=== PATIENT | female | born 1955 | race Caucasian/White ===

== ENCOUNTER 2021-06-11 16:15 | Emergency (ER) | payer OTHER ==
[2021-06-11 20:10] LABS: Basophils % (A) 0 %; Eosinophils # (A) 0.1 k/uL (0-0.7); Eosinophils % (A) 1 %; HCT 40.4 % (34.0-46.0); HGB 14.2 gm/dL (11.4-16.0); Lymphocytes # (A) 0.9 k/uL (1.0-4.8); Lymphocytes % (A) 17 %; MCH 32.4 pg (25.0-35.0); MCHC 35.2 g/dL (31.0-37.0); Mean Platelet Volume 8.5; Monocytes # (A) 0.2 k/uL (0-1.0); Monocytes % (A) 4 %; Neutrophils # (A) 3.9 k/uL (1.3-7.7); Neutrophils % (A) 76 %; Platelet Count 254 k/uL (150-450); RBC 4.39 m/uL (3.80-5.40); RDW 12.8 % (11.5-15.5); WBC 5.2 k/uL (3.8-10.6)
[2021-06-11 20:13] LABS: ALT 34 U/L (4-34); AST 65 U/L (14-36); African American GFR (CKD) >90 (>60 ml/min/1.73 sqM); Albumin 3.4 g/dL (3.5-5.0); Alkaline Phosphatase 104 U/L (38-126); Anion Gap 9 mmol/L; Blood Urea Nitrogen 20 mg/dL (7-17); C Reactive Protein 6.1 mg/dL (<1.0); Calcium 9.1 mg/dL (8.4-10.2); Carbon Dioxide 24 mmol/L (22-30); Chloride 108 mmol/L (98-107); Glucose 96 mg/dL (74-99); Magnesium 1.9 mg/dL (1.6-2.3); Non-African American GFR(CKD) 84 (>60 ml/min/1.73 sqM); Potassium 4.3 mmol/L (3.5-5.1); Sodium 141 mmol/L (137-145); Total Bilirubin 1.1 mg/dL (0.2-1.3); Total Protein 6.4 g/dL (6.3-8.2)
[2021-06-11] MEDS ORDERED: SODIUM CHLORIDE 0.9% 1,000 ML IV ONE (20:27)
[2021-06-11] MEDS ORDERED: ONDANSETRON 4 MG/2 ML VIAL IVP STA (20:27)
[2021-06-11 20:28] LABS: INR 0.9 (<1.2); Prothrombin Time 9.8 sec (9.0-12.0)
[2021-06-11 20:41] LABS: Partial Thromboplastin Time 21.1 sec (22.0-30.0)
--- NOTE | 2021-06-11 20:59 | XR ---
EXAMINATION TYPE: XR chest 1V portable DATE OF EXAM: 06/11/2021 COMPARISON: NONE HISTORY: Weakness. Shortness of breath. TECHNIQUE: Single frontal view of the chest is obtained. FINDINGS: Cardiac mediastinal silhouette and pulmonary vasculature is within normal limits. There is bilateral patchy opacity. No effusion or pneumothorax. IMPRESSION: Multifocal airspace disease.
[2021-06-11] MEDS ORDERED: KETOROLAC 15 MG/ML 1 ML VIAL IVP STA (21:07)
--- NOTE | 2021-06-11 22:02 | ED ---
URI HPI - General Chief Complaint: Upper Respiratory Infection Stated Complaint: SOB,Weakness Source: patient Mode of arrival: ambulatory Limitations: no limitations - History of Present Illness Initial Comments: 65-year-old female with no past medical history presents emergency department reporting nausea, vomiting and shortness of breath. Patient states that she was around her daughter who tested positive for Covid. Patient began having symptoms on Monday. She went to [facility] and got tested on Monday and was positive. States that the course of the week she has been very fatigued, short of breath with nausea and inability to hold down any food or drink. She denies fevers. No chest pain. No previous history of pulmonary or cardiac disease. No other alleviating, precipitating or modifying factors - Related Data Home Medications Medication Instructions Recorded Confirmed No Known Home Medications 06/11/21 06/11/21 Allergies Allergy/AdvReac Type Severity Reaction Status Date / Time No Known Allergies Allergy Verified 06/11/21 22:03 Review of Systems ROS Statement: Those systems with pertinent positive or pertinent negative responses have been documented in the HPI. ROS Other: All systems not noted in ROS Statement are negative. Past Medical History Past Medical History: No Reported History History of Any Multi-Drug Resistant Organisms: None Reported Past Surgical History: Section, Joint Replacement Additional Past Surgical History / Comment(s): L hip replacement, dtached rtina Past Psychological History: No Psychological Hx Reported Smoking Status: Never smoker Past Alcohol Use History: None Reported Past Drug Use History: None Reported General Exam Limitations: no limitations Course Vital Signs 06/11/21 06/11/21 06/11/21 17:29 19:32 22:55 Temperature 98 F 98.1 F Pulse Rate 50 L 50 L Respiratory 18 20 20 Rate Blood Pressure 111/69 126/74 O2 Sat by Pulse 94 L 96 Oximetry Procedures - [place] Protocol (Time Out) Nurse: Henrietta Lawler Medical Decision Making - Medical Decision Making On arrival patient is placed into room 15. A thorough history and physical exam is performed. Placed on continuous pulse ox and cardiac monitoring. Patient is able to maintain her saturations above 90%. Laboratories is conducted. D-dimer elevated at 2.47. Because of elevated d-dimer I did recommend a CT of the chest. It fails to demonstrate a PE however does demonstrate multifocal pneumonia. I discussed diagnosis, differential and treatment options. Patient feels comfortable going home at this time. She will receive antibody infusion. She'll be discharged home and is instructed follow up with her primary care doctor 2-4 days. Return to the emergency department should she have any worsening symptoms. Patient agreed to this was discharged home in stable condition - Lab Data Result diagrams: 06/11/21 19:50 06/11/21 19:50 Lab Results 06/11/21 06/11/21 06/11/21 Range/Units 19:50 19:50 19:50 WBC 5.2 (3.8-10.6) k/uL RBC 4.39 (3.80-5.40) m/uL Hgb 14.2 (11.4-16.0) gm/dL Hct 40.4 (34.0-46.0) % MCV 92.0 (80.0-100.0) fL MCH 32.4 (25.0-35.0) pg MCHC 35.2 (31.0-37.0) g/dL RDW 12.8 (11.5-15.5) % Plt Count 254 (150-450) k/uL MPV 8.5 Neutrophils % 76 % Lymphocytes % 17 % Monocytes % 4 % Eosinophils % 1 % Basophils % 0 % Neutrophils # 3.9 (1.3-7.7) k/uL Lymphocytes # 0.9 L (1.0-4.8) k/uL Monocytes # 0.2 (0-1.0) k/uL Eosinophils # 0.1 (0-0.7) k/uL Basophils # 0.0 (0-0.2) k/uL PT 9.8 (9.0-12.0) sec INR 0.9 (<1.2) APTT 21.1 L (22.0-30.0) sec D-Dimer 2.47 H (<0.60) mg/L FEU Sodium 141 (137-145) mmol/L Potassium 4.3 (3.5-5.1) mmol/L Chloride 108 H (98-107) mmol/L Carbon Dioxide 24 (22-30) mmol/L Anion Gap 9 mmol/L BUN 20 H (7-17) mg/dL Creatinine 0.76 (0.52-1.04) mg/dL Est GFR (CKD-EPI)AfAm >90 (>60 ml/min/1.73 sqM) Est GFR (CKD-EPI)NonAf 84 (>60 ml/min/1.73 sqM) Glucose 96 (74-99) mg/dL Plasma Lactic Acid Juancho (0.7-2.0) mmol/L Calcium 9.1 (8.4-10.2) mg/dL Magnesium 1.9 (1.6-2.3) mg/dL Total Bilirubin 1.1 (0.2-1.3) mg/dL AST 65 H (14-36) U/L ALT 34 (4-34) U/L Alkaline Phosphatase 104 (38-126) U/L C-Reactive Protein 6.1 H (<1.0) mg/dL Total Protein 6.4 (6.3-8.2) g/dL Albumin 3.4 L (3.5-5.0) g/dL 06/11/21 Range/Units 19:50 WBC (3.8-10.6) k/uL RBC (3.80-5.40) m/uL Hgb (11.4-16.0) gm/dL Hct (34.0-46.0) % MCV (80.0-100.0) fL MCH (25.0-35.0) pg MCHC (31.0-37.0) g/dL RDW (11.5-15.5) % Plt Count (150-450) k/uL MPV Neutrophils % % Lymphocytes % % Monocytes % % Eosinophils % % Basophils % % Neutrophils # (1.3-7.7) k/uL Lymphocytes # (1.0-4.8) k/uL Monocytes # (0-1.0) k/uL Eosinophils # (0-0.7) k/uL Basophils # (0-0.2) k/uL PT (9.0-12.0) sec INR (<1.2) APTT (22.0-30.0) sec D-Dimer (<0.60) mg/L FEU Sodium (137-145) mmol/L Potassium (3.5-5.1) mmol/L Chloride (98-107) mmol/L Carbon Dioxide (22-30) mmol/L Anion Gap mmol/L BUN (7-17) mg/dL Creatinine (0.52-1.04) mg/dL Est GFR (CKD-EPI)AfAm (>60 ml/min/1.73 sqM) Est GFR (CKD-EPI)NonAf (>60 ml/min/1.73 sqM) Glucose (74-99) mg/dL Plasma Lactic Acid Juancho 1.2 (0.7-2.0) mmol/L Calcium (8.4-10.2) mg/dL Magnesium (1.6-2.3) mg/dL Total Bilirubin (0.2-1.3) mg/dL AST (14-36) U/L ALT (4-34) U/L Alkaline Phosphatase (38-126) U/L C-Reactive Protein (<1.0) mg/dL Total Protein (6.3-8.2) g/dL Albumin (3.5-5.0) g/dL - EKG Data EKG Comments: EKG demonstrates a marked sinus bradycardia with a ventricular rate of 43. Irritable 110. QRS 88. QTC of 412. No acute ST segment elevations or depressions. No signs of high degree heart block Disposition Clinical Impression: COVID-19, Nausea and vomiting Disposition: HOME SELF-CARE Condition: Stable Instructions (If sedation given, give patient instructions): Coronavirus Disease 2019 (COVID-19) Additional Instructions: You were given antibody infusion in the ED. Follow up with your PCP in 2-4 days. Return to the emergency room for any new or worsening symptoms Is patient prescribed a controlled substance at d/c from ED?: No Referrals: Jeannette Nunez MD [Primary Care Provider] - 1-2 days Time of Disposition: 22:26
--- NOTE | 2021-06-11 22:04 | CT ---
EXAMINATION TYPE: CT chest angio for PE DATE OF EXAM: 06/11/2021 COMPARISON: None HISTORY: SOB AND COVID CT DLP: 209.6 mGycm Automated exposure control for dose reduction was used. CONTRAST: CT Chest for pulmonary embolism performed with with IV Contrast, patient injected with 100 mL of Isov ue 370. FINDINGS: LUNGS: Bilateral, scattered, peripheral groundglass opacity. The tracheobronchial tree is patent. No effusion or pneumothorax.. MEDIASTINUM: There is satisfactory enhancement of the pulmonary artery and its branches, there is no CT evidence for pulmonary embolism. There are no greater than 1 cm hilar or mediastinal lymph nodes. No pericardial effusion is seen. OTHER: No additional significant abnormality is seen. IMPRESSION: 1. No pulmonary embolus. 2. Multifocal pneumonia.
[2021-06-11 22:58] VITALS: RESP 20; TEMP 98.1
[2021-06-11] MEDS ORDERED: SODIUM CHLORIDE 0.9% 50 ML IVPB ONE (23:15)
[2021-06-11] MEDS ORDERED: CASIRIVIMAB/IMDEVIMAB (EUA) 1,200 MG in SODIUM CHLORIDE 0.9% 100 ML IVPB ONE (23:15)
[2021-06-12] MEDS ORDERED: ONDANSETRON 4 MG ODT STARTER PACK 2 TAB BTL PO STA (01:17)
[2021-06-12 01:25] VITALS: BP 123/70; PULSE 45
== END 2021-06-12 01:25 | disposition home or self-care (01) ==
LOC: EC 16:15
DX: U07.1 COVID-19 (principal); R11.2 Nausea with vomiting, unspecified
CPT/HCPCS: 36415; 93005; 85379; 80053; 83605; 83735; 85025; 85610; 85730; 86140; 84145; 71045; 71275; 99285; 96365; 96375 ×2; 96361 ×2; J2405; J1885; S0119; Q9967; Q0243

== ENCOUNTER 2021-06-14 14:42 | Emergency (ER) | payer OTHER ==
[2021-06-14 15:06] VITALS: TEMP 98.5
[2021-06-14] MEDS ORDERED: SODIUM CHLORIDE 0.9% 1,000 ML IV STA (15:40)
[2021-06-14] MEDS ORDERED: DEXAMETHASONE SOD PHOSPHATE 10 MG/ML 1 ML VIAL IV STA (15:41)
--- NOTE | 2021-06-14 15:47 | ED ---
General Adult HPI - General Chief complaint: Weakness Stated complaint: Covid+/headache/nausea/vomiting Time Seen by Provider: 06/14/21 15:31 Source: patient, RN notes reviewed, old records reviewed Mode of arrival: wheelchair Limitations: no limitations - History of Present Illness Initial comments: 65-year-old female presenting for evaluation of fatigue, weakness, headache and nausea. Patient had been diagnosed with coronavirus approximately one week ago. She received monoclonal antibody infusion 3 days ago. Despite this treatment she has not improved. She denies chronic medical conditions. She had not been vaccinated. She denies measured fever. She does have exertional dyspnea and cough. She has nausea and dry heaving. She hasn't headache and poor appetite. - Related Data Previous Rx's Medication Instructions Recorded Dexamethasone [Decadron] 6 mg PO DAILY #10 tablet 06/14/21 Allergies Allergy/AdvReac Type Severity Reaction Status Date / Time No Known Allergies Allergy Verified 06/14/21 15:06 Review of Systems ROS Statement: Those systems with pertinent positive or pertinent negative responses have been documented in the HPI. ROS Other: All systems not noted in ROS Statement are negative. Past Medical History Past Medical History: No Reported History History of Any Multi-Drug Resistant Organisms: None Reported Past Surgical History: Section, Joint Replacement Additional Past Surgical History / Comment(s): L hip replacement, dtached rtina Past Psychological History: No Psychological Hx Reported Smoking Status: Never smoker Past Alcohol Use History: None Reported Past Drug Use History: None Reported General Exam Limitations: no limitations General appearance: alert, in no apparent distress Head exam: Present: atraumatic, normocephalic Eye exam: Present: normal appearance, PERRL ENT exam: Present: mucous membranes dry Neck exam: Present: normal inspection. Absent: tenderness, meningismus Respiratory exam: Present: rhonchi. Absent: respiratory distress, wheezes Cardiovascular Exam: Present: normal rhythm, bradycardia GI/Abdominal exam: Present: soft. Absent: distended, tenderness, guarding Extremities exam: Present: normal inspection, normal capillary refill. Absent: pedal edema, calf tenderness Neurological exam: Present: alert, oriented X3, CN II-XII intact. Absent: motor sensory deficit Psychiatric exam: Present: normal affect, normal mood Skin exam: Present: warm, dry, intact. Absent: cyanosis, diaphoretic Course Vital Signs 06/14/21 15:03 Temperature 98.5 F Pulse Rate 48 L Respiratory 16 Rate Blood Pressure 111/67 O2 Sat by Pulse 96 Oximetry EKG Findings - EKG Comments: EKG Findings:: Marked sinus bradycardia rate of 44 the corrected QT interval is 432 PA interval 124, QRS duration [address] segment elevation. Medical Decision Making - Medical Decision Making 65-year-old female presenting with coronavirus, Main complaint is fatigue and nausea. Patient has significant: Pneumonia on x-ray but is not hypoxic, no respiratory distress. She has a normal CBC, normal CMP. EKG shows a sinus bradycardia with stable blood pressure. She receives IV hydration as well as Decadron in the emergency department. Given the pneumonia I discussed case with Dr. Jeremias espinal for pulmonology who is agreeable with outpatient steroids. I did also give the patient the option of admission for hydration and symptom control versus discharge. She prefers discharge. She will be prescribed Decadron prescription, her will obtain pulse oximeter monitor oxygen level closely. Return parameters discussed. - Lab Data Result diagrams: 06/14/21 15:54 06/14/21 15:54 Lab Results 06/14/21 06/14/21 06/14/21 Range/Units 15:54 15:54 15:54 WBC 5.7 (3.8-10.6) k/uL RBC 4.40 (3.80-5.40) m/uL Hgb 13.7 (11.4-16.0) gm/dL Hct 40.5 (34.0-46.0) % MCV 92.1 (80.0-100.0) fL MCH 31.1 (25.0-35.0) pg MCHC 33.7 (31.0-37.0) g/dL RDW 12.3 (11.5-15.5) % Plt Count 329 (150-450) k/uL MPV 8.4 Neutrophils % 75 % Lymphocytes % 16 % Monocytes % 5 % Eosinophils % 2 % Basophils % 1 % Neutrophils # 4.3 (1.3-7.7) k/uL Lymphocytes # 0.9 L (1.0-4.8) k/uL Monocytes # 0.3 (0-1.0) k/uL Eosinophils # 0.1 (0-0.7) k/uL Basophils # 0.0 (0-0.2) k/uL PT 10.2 (9.0-12.0) sec INR 0.9 (<1.2) APTT 22.8 (22.0-30.0) sec Sodium 139 (137-145) mmol/L Potassium 3.5 (3.5-5.1) mmol/L Chloride 105 (98-107) mmol/L Carbon Dioxide 22 (22-30) mmol/L Anion Gap 12 mmol/L BUN 18 H (7-17) mg/dL Creatinine 0.71 (0.52-1.04) mg/dL Est GFR (CKD-EPI)AfAm >90 (>60 ml/min/1.73 sqM) Est GFR (CKD-EPI)NonAf >90 (>60 ml/min/1.73 sqM) Glucose 92 (74-99) mg/dL Plasma Lactic Acid Juancho (0.7-2.0) mmol/L Calcium 9.0 (8.4-10.2) mg/dL Magnesium 1.8 (1.6-2.3) mg/dL Total Bilirubin 1.0 (0.2-1.3) mg/dL AST 31 (14-36) U/L ALT 23 (4-34) U/L Alkaline Phosphatase 111 (38-126) U/L Troponin I (0.000-0.034) ng/mL Total Protein 6.3 (6.3-8.2) g/dL Albumin 3.2 L (3.5-5.0) g/dL 06/14/21 06/14/21 Range/Units 15:54 15:54 WBC (3.8-10.6) k/uL RBC (3.80-5.40) m/uL Hgb (11.4-16.0) gm/dL Hct (34.0-46.0) % MCV (80.0-100.0) fL MCH (25.0-35.0) pg MCHC (31.0-37.0) g/dL RDW (11.5-15.5) % Plt Count (150-450) k/uL MPV Neutrophils % % Lymphocytes % % Monocytes % % Eosinophils % % Basophils % % Neutrophils # (1.3-7.7) k/uL Lymphocytes # (1.0-4.8) k/uL Monocytes # (0-1.0) k/uL Eosinophils # (0-0.7) k/uL Basophils # (0-0.2) k/uL PT (9.0-12.0) sec INR (<1.2) APTT (22.0-30.0) sec Sodium (137-145) mmol/L Potassium (3.5-5.1) mmol/L Chloride (98-107) mmol/L Carbon Dioxide (22-30) mmol/L Anion Gap mmol/L BUN (7-17) mg/dL Creatinine (0.52-1.04) mg/dL Est GFR (CKD-EPI)AfAm (>60 ml/min/1.73 sqM) Est GFR (CKD-EPI)NonAf (>60 ml/min/1.73 sqM) Glucose (74-99) mg/dL Plasma Lactic Acid Juancho 1.1 (0.7-2.0) mmol/L Calcium (8.4-10.2) mg/dL Magnesium (1.6-2.3) mg/dL Total Bilirubin (0.2-1.3) mg/dL AST (14-36) U/L ALT (4-34) U/L Alkaline Phosphatase (38-126) U/L Troponin I 0.015 (0.000-0.034) ng/mL Total Protein (6.3-8.2) g/dL Albumin (3.5-5.0) g/dL Disposition Clinical Impression: COVID-19, Nausea and vomiting Disposition: HOME SELF-CARE Condition: Fair Instructions (If sedation given, give patient instructions): Coronavirus Disease 2019 (COVID-19) Additional Instructions: Please attempt to maintain hydration at home. Please take vitamins as discussed as well as prescription steroids. Please monitor your oxygen level closely and return with worsening or changing symptoms. Prescriptions: Dexamethasone [Decadron] 6 mg PO DAILY #10 tablet Is patient prescribed a controlled substance at d/c from ED?: No Referrals: Jeannette Nunez MD [Primary Care Provider] - 1-2 days Time of Disposition: 17:49
[2021-06-14 16:01] LABS: Basophils % (A) 1 %; Eosinophils # (A) 0.1 k/uL (0-0.7); Eosinophils % (A) 2 %; HCT 40.5 % (34.0-46.0); HGB 13.7 gm/dL (11.4-16.0); Lymphocytes # (A) 0.9 k/uL (1.0-4.8); Lymphocytes % (A) 16 %; MCH 31.1 pg (25.0-35.0); MCHC 33.7 g/dL (31.0-37.0); MCV 92.1 fL (80.0-100.0); Mean Platelet Volume 8.4; Monocytes # (A) 0.3 k/uL (0-1.0); Monocytes % (A) 5 %; Neutrophils # (A) 4.3 k/uL (1.3-7.7); Neutrophils % (A) 75 %; Platelet Count 329 k/uL (150-450); RDW 12.3 % (11.5-15.5); WBC 5.7 k/uL (3.8-10.6)
[2021-06-14 16:09] LABS: ALT 23 U/L (4-34); AST 31 U/L (14-36); African American GFR (CKD) >90 (>60 ml/min/1.73 sqM); Albumin 3.2 g/dL (3.5-5.0); Alkaline Phosphatase 111 U/L (38-126); Anion Gap 12 mmol/L; Blood Urea Nitrogen 18 mg/dL (7-17); Carbon Dioxide 22 mmol/L (22-30); Chloride 105 mmol/L (98-107); Glucose 92 mg/dL (74-99); Magnesium 1.8 mg/dL (1.6-2.3); Non-African American GFR(CKD) >90 (>60 ml/min/1.73 sqM); Potassium 3.5 mmol/L (3.5-5.1); Sodium 139 mmol/L (137-145); Total Protein 6.3 g/dL (6.3-8.2)
--- NOTE | 2021-06-14 16:13 | XR ---
EXAMINATION TYPE: XR chest 1V portable DATE OF EXAM: 06/14/2021 COMPARISON: Chest x-ray and CTA chest from 3 days ago HISTORY: Weakness and shortness of breath. COVID positive. TECHNIQUE: Single AP portable frontal upright view of the chest is obtained. FINDINGS: There is redemonstration of bilateral multifocal opacities greatest in the periphery of th e mid to lower lungs. The cardiac silhouette size is stable and within normal limits. Slight underly ing scoliosis redemonstrated. IMPRESSION: Bilateral multifocal opacities consistent with covid-19 infection redemonstrated. No sig nificant change from 3 days earlier..
[2021-06-14 16:19] LABS: INR 0.9 (<1.2); Partial Thromboplastin Time 22.8 sec (22.0-30.0); Prothrombin Time 10.2 sec (9.0-12.0)
[2021-06-14 18:05] VITALS: BP 147/88; PULSE 45; RESP 18
== END 2021-06-14 18:00 | disposition home or self-care (01) ==
LOC: EC 14:42
DX: R53.1 Weakness (principal); U07.1 COVID-19; R11.2 Nausea with vomiting, unspecified
CPT/HCPCS: 93005; 80053; 83605; 83735; 84484; 85025; 85610; 85730; 71045; 99285; 96374; 96361 ×2; J1100; 99284

== ENCOUNTER 2021-06-30 17:51 | Inpatient (IN) | payer OTHER ==
[2021-06-30] MEDS ORDERED: SODIUM CHLORIDE 0.9% 500 ML 500 ML IV STA (19:07)
[2021-06-30] MEDS ORDERED: IPRATROPIUM 0.5 MG/2.5 ML NEBU INHALATION STA (19:07)
--- NOTE | 2021-06-30 19:14 | ED ---
General Adult HPI - General Chief complaint: Shortness of Breath Stated complaint: Low Oxygen, [place] Time Seen by Provider: 06/30/21 18:50 Source: patient, RN notes reviewed, old records reviewed Mode of arrival: wheelchair Limitations: no limitations - History of Present Illness Initial comments: This is a 65-year-old female who presents to the emergency department complaining of difficulty breathing. Patient states she had cold about a month ago and on Monday she started having difficulty breathing and it has gotten progressively worse. Patient states her pulse ox is between 88 and 89 at home so she decided to come to the emergency department. Patient denies any chest pain or palpitations. Patient states she is coughing quite a bit but any coughing or exertion makes her extremely short of breath. Patient denies any leg swelling or calf tenderness. Patient denies any abdominal pain patient denies nausea vomiting diarrhea. Patient denies any fever or chills. - Related Data Previous Rx's Medication Instructions Recorded Albuterol Inhaler [Ventolin Hfa 2 puff INHALATION RT-QID PRN #1 gm 07/04/21 Inhaler] Apixaban [Eliquis] 2.5 mg PO BID #60 tab 07/04/21 Ascorbic Acid [Vitamin C] 1,000 mg PO DAILY #60 tab 07/04/21 Cefuroxime Axetil [Ceftin] 500 mg PO BID #10 tab 07/04/21 Cholecalciferol [Vitamin D3 (25 125 mcg PO DAILY #100 tablet 07/04/21 Mcg = 1000 Iu)] Zinc Sulfate [Orazinc] 220 mg PO DAILY #30 cap 07/04/21 predniSONE 10 mg PO DAILY #30 tab 07/04/21 Allergies Allergy/AdvReac Type Severity Reaction Status Date / Time No Known Allergies Allergy Verified 06/30/21 21:10 Review of Systems ROS Statement: Those systems with pertinent positive or pertinent negative responses have been documented in the HPI. ROS Other: All systems not noted in ROS Statement are negative. Past Medical History Past Medical History: No Reported History History of Any Multi-Drug Resistant Organisms: None Reported Past Surgical History: Section, Joint Replacement Additional Past Surgical History / Comment(s): L hip replacement, dtached rtina Past Psychological History: No Psychological Hx Reported Smoking Status: Never smoker Past Alcohol Use History: None Reported Past Drug Use History: None Reported General Exam - General Exam Comments Initial Comments: GENERAL: Patient is well-developed and well-nourished. Patient is nontoxic and well- hydrated and is in mild distress. ENT: Neck is soft and supple. No significant lymphadenopathy is noted. Oropharynx is clear. Moist mucous membranes. Neck has full range of motion without eliciting any pain. EYES: The sclera were anicteric and conjunctiva were pink and moist. Extraocular movements were intact and pupils were equal round and reactive to light. Eyelids were unremarkable. PULMONARY: Patient has decreased breath sounds with some expiratory wheezing CARDIOVASCULAR: There is a regular rate and rhythm without any murmurs gallops or rubs. ABDOMEN: Soft and nontender with normal bowel sounds. SKIN: Skin is clear with no lesions or rashes and otherwise unremarkable. NEUROLOGIC: Patient is alert and oriented x3. Cranial nerves II through XII are grossly intact. Motor and sensory are also intact. Normal speech, volume and content. Symmetrical smile. MUSCULOSKELETAL: Normal extremities with adequate strength and full range of motion. LYMPHATICS: No significant lymphadenopathy is noted PSYCHIATRIC: Normal psychiatric evaluation. Limitations: no limitations Course Vital Signs 06/30/21 06/30/21 06/30/21 18:50 19:44 20:14 Temperature 99.1 F Pulse Rate 72 64 69 Respiratory 20 18 Rate Blood Pressure 114/68 127/76 O2 Sat by Pulse 89 L 96 Oximetry 06/30/21 06/30/21 21:00 23:15 Temperature 98.9 F Pulse Rate 65 64 Respiratory 18 18 Rate Blood Pressure 118/79 122/81 O2 Sat by Pulse 96 96 Oximetry Medical Decision Making - Medical Decision Making EKG shows normal sinus rhythm at 75 bpm [place] interval 216 QRS is 88 QT interval is 532 QTC is 594. Patient's EKG shows no ST segment elevation or depression. Chest x-ray shows: Pneumonia bilaterally pretty much unchanged since the last chest x-ray. Dr. Rhodes will be taking over the care of this patient at 9 PM - Lab Data Result diagrams: 07/03/21 06:49 07/03/21 06:49 Lab Results 06/30/21 06/30/21 06/30/21 Range/Units 19:28 19:28 19:28 WBC 5.5 (3.8-10.6) k/uL RBC 3.99 (3.80-5.40) m/uL Hgb 13.2 (11.4-16.0) gm/dL Hct 38.2 (34.0-46.0) % MCV 95.9 (80.0-100.0) fL MCH 33.0 (25.0-35.0) pg MCHC 34.4 (31.0-37.0) g/dL RDW 14.5 (11.5-15.5) % Plt Count 203 (150-450) k/uL MPV 8.6 Neutrophils % (Manual) 51 % Band Neuts % (Manual) 17 % Lymphocytes % (Manual) 25 % Monocytes % (Manual) 7 % Neutrophils # (Manual) 3.70 (1.3-7.7) k/uL Lymphocytes # (Manual) 1.38 (1.0-4.8) k/uL Monocytes # (Manual) 0.39 (0-1.0) k/uL Nucleated RBCs 0 (0-0) /100 WBC Manual Slide Review Performed PT 10.7 (9.0-12.0) sec INR 1.0 (<1.2) APTT 27.4 (22.0-30.0) sec D-Dimer 2.57 H (<0.60) mg/L FEU Sodium 137 (137-145) mmol/L Potassium 3.7 (3.5-5.1) mmol/L Chloride 107 (98-107) mmol/L Carbon Dioxide 22 (22-30) mmol/L Anion Gap 8 mmol/L BUN 11 (7-17) mg/dL Creatinine 0.66 (0.52-1.04) mg/dL Est GFR (CKD-EPI)AfAm >90 (>60 ml/min/1.73 sqM) Est GFR (CKD-EPI)NonAf >90 (>60 ml/min/1.73 sqM) Glucose 90 (74-99) mg/dL Plasma Lactic Acid Juancho (0.7-2.0) mmol/L Calcium 8.9 (8.4-10.2) mg/dL Magnesium 2.1 (1.6-2.3) mg/dL Total Bilirubin 2.3 H (0.2-1.3) mg/dL AST 28 (14-36) U/L ALT 21 (4-34) U/L Alkaline Phosphatase 172 H (38-126) U/L Troponin I (0.000-0.034) ng/mL NT-Pro-B Natriuret Pep pg/mL Total Protein 6.6 (6.3-8.2) g/dL Albumin 3.1 L (3.5-5.0) g/dL Procalcitonin (0.02-0.09) ng/mL 06/30/21 06/30/21 06/30/21 Range/Units 19:28 19:28 19:28 WBC (3.8-10.6) k/uL RBC (3.80-5.40) m/uL Hgb (11.4-16.0) gm/dL Hct (34.0-46.0) % MCV (80.0-100.0) fL MCH (25.0-35.0) pg MCHC (31.0-37.0) g/dL RDW (11.5-15.5) % Plt Count (150-450) k/uL MPV Neutrophils % (Manual) % Band Neuts % (Manual) % Lymphocytes % (Manual) % Monocytes % (Manual) % Neutrophils # (Manual) (1.3-7.7) k/uL Lymphocytes # (Manual) (1.0-4.8) k/uL Monocytes # (Manual) (0-1.0) k/uL Nucleated RBCs (0-0) /100 WBC Manual Slide Review PT (9.0-12.0) sec INR (<1.2) APTT (22.0-30.0) sec D-Dimer (<0.60) mg/L FEU Sodium (137-145) mmol/L Potassium (3.5-5.1) mmol/L Chloride (98-107) mmol/L Carbon Dioxide (22-30) mmol/L Anion Gap mmol/L BUN (7-17) mg/dL Creatinine (0.52-1.04) mg/dL Est GFR (CKD-EPI)AfAm (>60 ml/min/1.73 sqM) Est GFR (CKD-EPI)NonAf (>60 ml/min/1.73 sqM) Glucose (74-99) mg/dL Plasma Lactic Acid Juancho 1.4 (0.7-2.0) mmol/L Calcium (8.4-10.2) mg/dL Magnesium (1.6-2.3) mg/dL Total Bilirubin (0.2-1.3) mg/dL AST (14-36) U/L ALT (4-34) U/L Alkaline Phosphatase (38-126) U/L Troponin I <0.012 (0.000-0.034) ng/mL NT-Pro-B Natriuret Pep 960 pg/mL Total Protein (6.3-8.2) g/dL Albumin (3.5-5.0) g/dL Procalcitonin (0.02-0.09) ng/mL 06/30/21 Range/Units 19:28 WBC (3.8-10.6) k/uL RBC (3.80-5.40) m/uL Hgb (11.4-16.0) gm/dL Hct (34.0-46.0) % MCV (80.0-100.0) fL MCH (25.0-35.0) pg MCHC (31.0-37.0) g/dL RDW (11.5-15.5) % Plt Count (150-450) k/uL MPV Neutrophils % (Manual) % Band Neuts % (Manual) % Lymphocytes % (Manual) % Monocytes % (Manual) % Neutrophils # (Manual) (1.3-7.7) k/uL Lymphocytes # (Manual) (1.0-4.8) k/uL Monocytes # (Manual) (0-1.0) k/uL Nucleated RBCs (0-0) /100 WBC Manual Slide Review PT (9.0-12.0) sec INR (<1.2) APTT (22.0-30.0) sec D-Dimer (<0.60) mg/L FEU Sodium (137-145) mmol/L Potassium (3.5-5.1) mmol/L Chloride (98-107) mmol/L Carbon Dioxide (22-30) mmol/L Anion Gap mmol/L BUN (7-17) mg/dL Creatinine (0.52-1.04) mg/dL Est GFR (CKD-EPI)AfAm (>60 ml/min/1.73 sqM) Est GFR (CKD-EPI)NonAf (>60 ml/min/1.73 sqM) Glucose (74-99) mg/dL Plasma Lactic Acid Juancho (0.7-2.0) mmol/L Calcium (8.4-10.2) mg/dL Magnesium (1.6-2.3) mg/dL Total Bilirubin (0.2-1.3) mg/dL AST (14-36) U/L ALT (4-34) U/L Alkaline Phosphatase (38-126) U/L Troponin I (0.000-0.034) ng/mL NT-Pro-B Natriuret Pep pg/mL Total Protein (6.3-8.2) g/dL Albumin (3.5-5.0) g/dL Procalcitonin 23.50 H (0.02-0.09) ng/mL Disposition
--- NOTE | 2021-06-30 19:36 | XR ---
EXAMINATION TYPE: XR chest 2V DATE OF EXAM: 06/30/2021 COMPARISON: 06/14/2021 HISTORY: Difficulty breathing TECHNIQUE: 2 views FINDINGS: There is extensive patchy infiltrates in both lung govea. Heart size is fairly normal. The re is no mediastinal adenopathy. There are no hilar masses. There is no significant pleural fluid. Dharmesh ny thorax is intact. IMPRESSION: Patchy bilateral pneumonia which appears the same or slightly worse than last exam. Elisha l heart.
[2021-06-30] MEDS ORDERED: DEXAMETHASONE SOD PHOSPHATE 10 MG/ML 1 ML VIAL IV STA (19:57)
[2021-06-30 20:01] LABS: ALT 21 U/L (4-34); AST 28 U/L (14-36); African American GFR (CKD) >90 (>60 ml/min/1.73 sqM); Albumin 3.1 g/dL (3.5-5.0); Alkaline Phosphatase 172 U/L (38-126); Anion Gap 8 mmol/L; Blood Urea Nitrogen 11 mg/dL (7-17); Calcium 8.9 mg/dL (8.4-10.2); Carbon Dioxide 22 mmol/L (22-30); Chloride 107 mmol/L (98-107); Glucose 90 mg/dL (74-99); Magnesium 2.1 mg/dL (1.6-2.3); Non-African American GFR(CKD) >90 (>60 ml/min/1.73 sqM); Potassium 3.7 mmol/L (3.5-5.1); Sodium 137 mmol/L (137-145); Total Bilirubin 2.3 mg/dL (0.2-1.3); Total Protein 6.6 g/dL (6.3-8.2)
[2021-06-30 20:07] LABS: Partial Thromboplastin Time 27.4 sec (22.0-30.0); Prothrombin Time 10.7 sec (9.0-12.0)
[2021-06-30 20:10] LABS: HCT 38.2 % (34.0-46.0); HGB 13.2 gm/dL (11.4-16.0); MCHC 34.4 g/dL (31.0-37.0); MCV 95.9 fL (80.0-100.0); Mean Platelet Volume 8.6; Platelet Count 203 k/uL (150-450); RBC 3.99 m/uL (3.80-5.40); RDW 14.5 % (11.5-15.5); WBC 5.5 k/uL (3.8-10.6)
[2021-06-30 20:59] LABS: Band Neutrophils % 17 %; Lymphocytes # (M) 1.38 k/uL (1.0-4.8); Monocytes # (M) 0.39 k/uL (0-1.0); Neutrophils % (M) 51 %; Nucleated Red Blood Cells 0 /100 WBC (0-0); Total Cells Counted 100
--- NOTE | 2021-06-30 21:49 | CT ---
EXAMINATION TYPE: CT chest angio for PE DATE OF EXAM: 06/30/2021 COMPARISON: 06/11/2021 HISTORY: pe CT DLP: 204.7 mGycm Automated exposure control for dose reduction was used. CONTRAST: Performed with IV Contrast, patient injected with 50 mL of Isovue 370. There are 3-D post processed images.Images obtained from the thoracic inlet to the diaphragm with IV contrast. There is patchy bilateral pulmonary interstitial and airspace infiltrates. Heart size is fairly bhvain l. There is no pericardial effusion. There is no pleural effusion. There are no hilar masses. There i s no mediastinal adenopathy. Thoracic aorta is intact. There is no aneurysm or dissection. The thorac ic spine is intact. There is mild spur formation. There is 10% anterior wedging of one mid thoracic v ertebra. Upper abdominal soft tissues appear intact. IMPRESSION: No evidence of pulmonary embolism. Extensive bilateral pneumonia which appears overall slightly worse than last exam.
[2021-06-30] MEDS ORDERED: PNEUMONIA PROTOCOL UTILIZED 1 EACH MISC PO PRN (22:10)
[2021-06-30] MEDS ORDERED: ALBUTEROL NEBULIZED 2.5 MG/3 ML INHALATION PRN (22:10)
[2021-06-30] MEDS ORDERED: AZITHROMYCIN 500 MG in SODIUM CHLORIDE 0.9% 250 ML IVPB SCH (23:00)
[2021-07-01] MEDS: PIPERACILLIN-TAZOBACTAM 3.375 GM in SODIUM CHLORIDE 0.9% 100 ML IVPB SCH ×2 (03:16→08:22)
[2021-07-01] MEDS: SODIUM CHLORIDE 0.9% 1,000 ML IV SCH ×2 (03:16→22:05)
[2021-07-01] MEDS ORDERED: IPRATROPIUM-ALBUTEROL 3 ML NEB INHALATION SCH (08:00)
--- NOTE | 2021-07-01 08:23 | XR ---
EXAMINATION TYPE: XR chest 2V DATE OF EXAM: 07/01/2021 COMPARISON: Chest x-ray 06/30/2021 HISTORY: Pneumonia TECHNIQUE: Frontal and lateral views of the chest are obtained. FINDINGS: Bilateral patchy increased density is present within the lungs as on prior exam. Cardiac m ediastinal silhouette is stable. No evident pneumothorax or pleural effusion. Right hemidiaphragm is mildly elevated. IMPRESSION: Findings consistent with pneumonia, correlate for Covid infection
--- NOTE | 2021-07-01 11:25 | P.HPIM ---
History of Present Illness H&P Date: 07/01/21 Chief Complaint: Short of breath cough This is a pleasant 65-year-old patient of follows with Dr. Nunez. Normally rather good health. For 5 days patient started having increasing chest congestion. Cough with green sputum. No obvious fever and chills. Decreased appetite. Also had a headache for about 3 days. Which is actually better this morning. No change in bowel movements. No obvious myalgia. Became hoarse. Last 2 days. Some wheezing. Tested negative for COVID. Patient otherwise normally in good health. Does not take any medications. Review of systems: GEN.: Tired decreased appetite EYES: None HEENT: Headache better NECK: None RESPIRATORY: As above CARDIOVASCULAR: None GASTROINTESTINAL: Occasional heartburn GENITOURINARY: None MUSCULOSKELETAL: None LYMPHATICS: None HEMATOLOGICAL: None PSYCHIATRY: None NEUROLOGICAL: None Past medical history to include: Joint replacement, detached retina Social history: . No history of smoking or alcohol Family history: Reviewed, noncontributory to presentation Physical examination: VITAL SIGNS: 97.7, 58, 16, 103/64, 95% on 4 L 89% on room air upon presentation GENERAL: BMI 25.7, sitting up in bed, tired awake. EYES: Pupils equal. Conjunctiva normal. HEENT: External appearance of nose and ears normal, oral cavity grossly normal. NECK: JVD not raised; masses not palpable. HEART: First and second heart sounds are normal; no edema. LUNGS: Respiratory rate increased, decreased breath sounds prolonged expiration cause crackles. ABDOMEN: Soft, nontender, liver spleen not palpable, no masses palpable. PSYCH: Alert and oriented x3; mood and affect normal MUSCULAR skeletal: Evidence of OA in multiple joints. NEUROLOGICAL: Cranial nerves grossly intact; no facial asymmetry, power and sensation grossly intact. LYMPHATICS: No lymph nodes palpable in the axilla and neck INVESTIGATIONS, reviewed in the clinical context: WBC 5.5 hemoglobin 13.2 platelets 203 sodium 137 potassium 3.7 creatinine 0.66 Troponin I less than 0.012 proBNP 960 Coronavirus [PCR]: Not detected EKG tracing personally reviewed by me-normal sinus rhythm nonspecific ST segment changes Chest x-ray film personally reviewed by me-diffuse bilateral scattered infiltrates Computed tomography scan of the chest with contrast: Negative for PE. Patchy bilateral anesthesia airspace infiltrates. Coronavirus [PCR]: Not detected Assessment and plan: -Patient presents with about 5 days of increasing respiratory symptoms. Green sputum. No fever or white count. Significant chest x-ray findings. This could be a viral pneumonitis. Bacterial infection cannot be ruled out. IV Zosyn, IV Zithromax. Check pro-calcitonin -Acute hypoxic respiratory failure from pneumonia Supplemental oxygen -Bronchospasm secondary to above Albuterol 2.5 nebulizer 4 times a day -GERD Pepcid 20 mg twice a day -Primary osteoarthritis multiple joints bilaterally Tylenol when necessary IV Zosyn, IV Zithromax. Check procalcitonin. Mucinex. Sputum for Gram stain and culture. Check for influenza A/B/RSV. Albuterol nebulizer. Pulmonary consult. Care was discussed with the patient. Questions answered. Past Medical History Past Medical History: No Reported History History of Any Multi-Drug Resistant Organisms: None Reported Past Surgical History: Section, Joint Replacement Additional Past Surgical History / Comment(s): L hip replacement, dtached rtina Past Anesthesia/Blood Transfusion Reactions: No Reported Reaction Past Psychological History: No Psychological Hx Reported Smoking Status: Never smoker Past Alcohol Use History: None Reported Past Drug Use History: None Reported Medications and Allergies Home Medications Medication Instructions Recorded Confirmed Type No Known Home Medications 06/30/21 06/30/21 History Allergies Allergy/AdvReac Type Severity Reaction Status Date / Time No Known Allergies Allergy Verified 06/30/21 21:10 Physical Exam Vitals: Vital Signs Temp Pulse Pulse Resp BP BP Pulse Ox 07/01/21 06:23 97.7 F 58 L 16 103/64 95 07/01/21 03:40 97.8 F 68 18 124/84 98 06/30/21 23:38 97.7 F 67 22 126/77 97 06/30/21 23:15 98.9 F 64 18 122/81 96 06/30/21 21:00 65 18 118/79 96 06/30/21 20:14 69 18 127/76 96 06/30/21 19:44 64 06/30/21 18:50 99.1 F 72 20 114/68 89 L Intake and Output 06/30/21 07/01/21 07/01/21 22:59 06:59 14:59 Intake Total 300 Balance 300 Intake: Oral 300 Other: # Voids 1 Weight 65.771 kg Results CBC & Chem 7: 06/30/21 19:28 10/13/21 19:28 Labs: Abnormal Lab Results - Last 24 Hours (Table) 06/30/21 06/30/21 Range/Units 19:28 19:28 D-Dimer 2.57 H (<0.60) mg/L FEU Total Bilirubin 2.3 H (0.2-1.3) mg/dL Alkaline Phosphatase 172 H (38-126) U/L Albumin 3.1 L (3.5-5.0) g/dL Thrombosis Risk Factor Assmnt - Choose All That Apply Any of the Below Risk Factors Present?: No Other Risk Factors: No Other congenital or acquired thrombophilia - If yes, enter type in comment: No Thrombosis Risk Factor Assessment Level: Very Low Risk
[2021-07-01] MEDS: ALBUTEROL NEBULIZED 2.5 MG/3 ML INHALATION SCH ×3 (12:29→20:33)
[2021-07-01] MEDS: guaiFENesin 600 MG TABLET.ER PO SCH ×3 (12:33→22:03)
--- NOTE | 2021-07-01 14:56 | P.CNPUL ---
History of Present Illness Consult date: 07/01/21 Requesting physician: Jeannette Nunez Reason for consult: dyspnea, cough, hypoxemia, pneumonia, abnormal CXR/CT Chief complaint: Shortness of breath. History of present illness: Pulmonary/critical care consultation dated 07/01/2021. 65-year-old female who comes to the emergency department on June 30, complaining of shortness of breath. The patient apparently tested positive for coronavirus back on June 04. At that time, she apparently received monoclonal antibody. She states that did not help. She apparently came back to the emergency room again, and received steroids, which she states helped. More recently, her days, her shortness of breath is worsened. In addition, she c omplains of a terrible cough. She is coughing up some phlegm. No fever or chills. No nausea, vomiting, or diarrhea. No abdominal pain. Her primary care physician is Dr. Jeannette Nunez. The patient denies any prior history of any major medical problems. She denies hypertension, diabetes, lung disease. The patient is not vaccinated. She tested positive on this admission for both coronavirus, and respiratory syncytial virus. Chest x-ray showed diffuse bilateral infiltrates. This was also seen on her computed tomography scan, which did not show a pulmonary embolism. Currently, she is on saline at 20 mL an hour, and 3 L nasal cannula. White count 5.5, he will 13.2, hematocrit 38.2, platelet count 203,000. PT INR and PTT were all normal. D-dimer 2.57. Her electrolyte profile was also normal. Her alkaline phosphatase is 172 N-terminal proBNP 960. Chest x-ray and CAT scan are both reviewed. Review of Systems REVIEW OF SYSTEMS: CONSTITUTIONAL: [Negative.] NEUROLOGIC: [ Negative.] HEENT: [ Negative.] CARDIAC: [Negative.] PULMONARY: Worsening shortness of breath and painful cough. GI: [Negative.] : [Negative.] RHEUMATOLOGIC: [ Negative.] IMMUNOLOGIC: [ Negative.] ENDOCRINE: [Negative. ] DERMATOLOGIC: [Negative.] Past Medical History Past Medical History: No Reported History History of Any Multi-Drug Resistant Organisms: None Reported Past Surgical History: Section, Joint Replacement Additional Past Surgical History / Comment(s): L hip replacement, dtached rtina Past Anesthesia/Blood Transfusion Reactions: No Reported Reaction Past Psychological History: No Psychological Hx Reported Smoking Status: Never smoker Past Alcohol Use History: None Reported Past Drug Use History: None Reported Medications and Allergies Home Medications Medication Instructions Recorded Confirmed Type No Known Home Medications 06/30/21 06/30/21 History Allergies Allergy/AdvReac Type Severity Reaction Status Date / Time No Known Allergies Allergy Verified 06/30/21 21:10 Physical Exam Osteopathic Statement: *. No significant issues noted on an osteopathic structural exam other than those noted in the History and Physical/Consult. Vitals: Vital Signs Temp Pulse Pulse Resp BP BP Pulse Ox 07/01/21 12:39 72 16 07/01/21 12:29 68 16 07/01/21 10:30 98.3 F 64 19 125/75 93 L 07/01/21 06:23 97.7 F 58 L 16 103/64 95 07/01/21 03:40 97.8 F 68 18 124/84 98 06/30/21 23:38 97.7 F 67 22 126/77 97 06/30/21 23:15 98.9 F 64 18 122/81 96 06/30/21 21:00 65 18 118/79 96 06/30/21 20:14 69 18 127/76 96 06/30/21 19:44 64 06/30/21 18:50 99.1 F 72 20 114/68 89 L Intake and Output 06/30/21 07/01/21 07/01/21 22:59 06:59 14:59 Intake Total 300 600 Balance 300 600 Intake: Oral 300 600 Other: # Voids 1 Weight 65.771 kg Mild conversational dyspnea, oriented 3. Currently on 3 L nasal cannula. Saturations are in the mid to high 90s. HEENT examination is grossly unremarkable. Neck supple. Full range of motion. No adenopathy thyromegaly or neck vein distention. Cardiovascular examination reveals regular rhythm rate. S1-S2 normal. No S3 or S4. No discernible murmur noted. Heart sounds are distant. Heart rate 75 bpm. Lungs reveal bilateral coarse rhonchi. No wheezes or crackles. Breath sounds equal bilaterally. The patient coughs with deep inspiration. Abdomen soft bowel sounds are heard. No masses or tenderness. Extremities are intact. No cyanosis clubbing or edema. Skin is without rash or lesion. Neurologic examination is brief but nonfocal. Results - Laboratory Findings CBC and BMP: 10/13/21 19:28 06/30/21 19:28 PT/INR, D-dimer PT 10.7 sec (9.0-12.0) 06/30/21 19:28 INR 1.0 (<1.2) 06/30/21 19:28 D-Dimer 2.57 mg/L FEU (<0.60) H 06/30/21 19:28 Abnormal lab findings: Abnormal Labs 06/30/21 06/30/21 07/01/21 19:28 19:28 12:34 D-Dimer 2.57 H Total Bilirubin 2.3 H Alkaline Phosphatase 172 H Albumin 3.1 L RSV (PCR) Detected A SARS-CoV-2 (PCR) Detected A - Diagnostic Findings Chest x-ray: image reviewed CT scan - chest: image reviewed Assessment and Plan Assessment: Acute hypoxemic respiratory failure secondary to coronavirus pneumonia. Patient also tested positive for respiratory syncytial virus. Previous administration of monoclonal antibody, on June 04. No significant past medical history. Plan: Plan dated 07/01/2021. The patient should get Decadron 6 mg daily. In addition, the patient should get vitamin C, vitamin D3, and zinc. She does not need any antibiotics. They will be discontinued. In addition, the patient should get Lovenox 40 mg subcu per d ay. She is not a candidate for REM. She is also not a candidate for Baricitinib. We will continue to follow make recommendations where appropriate. Prognosis is guarded. I did explain to the patient that her chest x-ray and CAT scan were reviewed. There was no evidence of blood clot. Time with Patient: Greater than 30
[2021-07-01] MEDS: ALBUTEROL HFA INHALER INHALATION PRN (20:34)
[2021-07-02] MEDS: ALBUTEROL HFA INHALER INHALATION PRN ×2 (08:13→11:49)
[2021-07-02] MEDS: ALBUTEROL NEBULIZED 2.5 MG/3 ML INHALATION SCH ×3 (08:14→15:36)
[2021-07-02 08:16] LABS: C Reactive Protein 22.9 mg/dL (<1.0)
[2021-07-02] MEDS: ASCORBIC ACID 500 MG TAB PO SCH (08:29)
[2021-07-02] MEDS: CHOLECALCIFEROL 25 MCG (1000 IU) TABLET PO SCH (08:29)
[2021-07-02] MEDS: guaiFENesin 600 MG TABLET.ER PO SCH ×3 (08:29→17:12)
[2021-07-02] MEDS: ZINC SULFATE 220 MG CAP PO SCH (08:29)
[2021-07-02] MEDS: ENOXAPARIN 40 MG/0.4 ML SYRINGE SQ SCH (08:29)
[2021-07-02] MEDS: dexAMETHasone 2 MG TAB PO SCH (08:29)
--- NOTE | 2021-07-02 11:09 | P.PN ---
Subjective Progress Note Date: 07/02/21 On today's evaluation are not 07/02/2021 patient is seen in follow-up on medical surgical floor, she is quite congested, wheezy, she is bringing up large amount of yellow-colored phlegm. Her pro-calcitonin level was significantly elevated at 23.5, suggesting presence of bacterial pneumonia, and patient will be started on Zosyn for empiric antibiotic coverage, blood cultures have been sent and pending, sputum sample was sent last night. Patient states her sputum color is a bit process chemist, although still significant in amount. She states a few days ago she was bringing up brownish colored phlegm. Breathing fairly comfortably, she is on 2 L of oxygen pulse ox is 95%, she is afebrile, d-dimer today is 1.69, improved, she remains on prophylactic dose Lovenox, LDH is not significantly elevated is actually within normal limit is 528, and CRP was elevated at 22.9 . She is sitting up in the chair, denies any chest pain, no hemoptysis, CTA chest showed no evidence of pulmonary embolism but presence of extensive bilateral pneumonia that was worsened from her most previous CT chest. Objective - Vital Signs Vital signs: Vital Signs Temp 98.3 F 07/02/21 09:57 Pulse 65 07/02/21 09:57 Resp 18 07/02/21 09:57 BP 122/76 07/02/21 09:57 Pulse Ox 95 07/02/21 09:57 Intake & Output 07/01/21 07/02/21 07/02/21 18:59 06:59 18:59 Intake Total 600 100 Balance 600 100 Intake: Oral 600 100 Other: Voiding Method Toilet Toilet # Voids 2 - Exam GENERAL EXAM: Alert, very pleasant, 65-year-old white female, on 2 L of oxygen with a pulse ox of 95%, sitting up in the recliner, has a loose congested cough, and patient is bringing up large amount of yellow-colored phlegm comfortable in no apparent distress. HEAD: Normocephalic/atraumatic. EYES: Normal reaction of pupils, equal size. Conjunctiva pink, sclera white. NOSE: Clear with pink turbinates. THROAT: No erythema or exudates. NECK: No masses, no JVD, no thyroid enlargement, no adenopathy. CHEST: No chest wall deformity. Symmetrical expansion. LUNGS: Equal air entry with diffuse rhonchi and wheezing CVS: Regular rate and rhythm, normal S1 and S2, no gallops, no murmurs, no rubs ABDOMEN: Soft, nontender. No hepatosplenomegaly, normal bowel sounds, no guarding or rigidity. EXTREMITIES: No clubbing, no edema, no cyanosis, 2+ pulses and upper and lower extremities. MUSCULOSKELETAL: Muscle strength and tone normal. SPINE: No scoliosis or deformity SKIN: No rashes CENTRAL NERVOUS SYSTEM: Alert and oriented -3. No focal deficits, tone is normal in all 4 extremities. PSYCHIATRIC: Alert and oriented -3. Appropriate affect. Intact judgment and insight. - Labs CBC & Chem 7: 06/30/21 19:28 06/30/21 19:28 Labs: Abnormal Lab Results - Last 24 Hours (Table) 06/30/21 07/01/21 07/02/21 Range/Units 19:28 12:34 05:38 D-Dimer (<0.60) mg/L FEU C-Reactive Protein 22.9 H (<1.0) mg/dL Procalcitonin 23.50 H (0.02-0.09) ng/mL RSV (PCR) Detected A (Not Detectd) SARS-CoV-2 (PCR) Detected A (Not Detectd) 07/02/21 Range/Units 05:58 D-Dimer 1.69 H (<0.60) mg/L FEU C-Reactive Protein (<1.0) mg/dL Procalcitonin (0.02-0.09) ng/mL RSV (PCR) (Not Detectd) SARS-CoV-2 (PCR) (Not Detectd) Microbiology - Last 24 Hours (Table) 06/30/21 23:05 Blood Culture - Preliminary Blood No Growth after 24 hours 06/30/21 22:50 Blood Culture - Preliminary Blood No Growth after 24 hours 07/01/21 10:21 Sputum Culture - Preliminary Sputum Assessment and Plan Plan: Assessment: #1. Acute hypoxic respiratory failure, multifactorial, related to recent history of COVID-19 infection status post monoclonal antibody infusion, RSV, and superinfection with a bacterial pathogen is suspected based on elevated pro- calcitonin #2. Suspect presence of a bacterial superinfection, bacterial pneumonia, patient will be covered with Zosyn empirically, pro calcitonin level came back elevated at 23.5, patient is producing copious amount of yellow-colored phlegm which will be sent for culture #3. Elevated d-dimer with no CTA evidence of pulmonary embolism, is currently improving, patient is currently on prophylactic dose Lovenox 40 mg daily Plan: Pro calcitonin level was noted We'll put the patient back on Zosyn Send a sputum culture, blood culture No urinary symptoms but will collect a urinalysis as well Continue Decadron, continue prophylactic Lovenox Follow-up chest x-ray, d-dimer and inflammatory markers tomorrow Continue following her clinical course I performed a history & physical examination of the patient and discussed their management with my nurse practitioner, Sabrina Henry. I reviewed the nurse practitioner's note and agree with the documented findings and plan of care. Lung sounds are positive for diffuse wheezes and rhonchi throughout the lung govea. The findings and the impression was discussed with the patient. I attest to the documentation by the nurse practitioner. Time with Patient: Less than 30
[2021-07-02] MEDS: PIPERACILLIN-TAZOBACTAM 3.375 GM in SODIUM CHLORIDE 0.9% 100 ML IVPB SCH (13:00)
--- NOTE | 2021-07-02 17:04 | P.PN ---
Progress Note - Text Progress Note Date: 07/02/21 Chief Complaint: Short of breath cough This is a pleasant 65-year-old patient of follows with Dr. Nunez. Normally rather good health. For 5 days patient started having increasing chest congestion. Cough with green sputum. No obvious fever and chills. Decreased appetite. Also had a headache for about 3 days. Which is actually better this morning. No change in bowel movements. No obvious myalgia. Became hoarse. Last 2 days. Some wheezing. Tested negative for COVID. Patient otherwise normally in good health. Does not take any medications. Patient's initial rapid COVID-19 testing was negative. Repeat testing came back positive both for RSV PCR and COVID-19. 07/02/2021: Reclining in bed. Congested cough. Heavy sputum production. Short of breath. Intake- 50% of her breakfast. Tired. On dexamethasone, IV Zosyn. Review of systems: Was done for constitutional, cardiovascular, GI, pulmonary. relevant finding as above Active Medications Albuterol Sulfate (Albuterol Hfa Inhaler) 2 puff INHALATION RT-QID PRN PRN Reason: Shortness Of Breath Or Wheezing Last Admin: 07/02/21 11:49 Dose: 2 puff Documented by: Ascorbic Acid (Ascorbic Acid 500 Mg Tab) 1,000 mg PO DAILY [facility] Last Admin: 07/02/21 08:29 Dose: 1,000 mg Documented by: Cholecalciferol (Cholecalciferol 25 Mcg (1000 Iu) Tablet) 125 mcg PO DAILY [facility] Last Admin: 07/02/21 08:29 Dose: 125 mcg Documented by: Dexamethasone (Dexamethasone 2 Mg Tab) 6 mg PO DAILY [facility] Last Admin: 07/02/21 08:29 Dose: 6 mg Documented by: Enoxaparin Sodium (Enoxaparin 40 Mg/0.4 Ml Syringe) 40 mg SQ DAILY [facility] Last Admin: 07/02/21 08:29 Dose: 40 mg Documented by: Guaifenesin (Guaifenesin 600 Mg Tablet.Er) 600 mg PO QID [facility] Last Admin: 07/02/21 13:00 Dose: 600 mg Documented by: Sodium Chloride (Saline 0.9%) 1,000 mls @ 20 mls/hr IV .Q24H [facility] Last Admin: 07/01/21 22:05 Dose: 20 mls/hr Documented by: Piperacillin Sod/Tazobactam (Sod 3.375 gm/ Sodium Chloride) 100 mls @ 25 mls/hr IVPB Q8H [facility] Last Admin: 07/02/21 13:00 Dose: 25 mls/hr Documented by: Miscellaneous Information (Pneumonia Protocol Utilized 1 Each [facility] [place], [place]) 1 each PO ONCE PRN PRN Reason: Per Protocol Zinc Sulfate (Zinc Sulfate 220 Mg Cap) 220 mg PO DAILY [facility] Last Admin: 07/02/21 08:29 Dose: 220 mg Documented by: Past medical history to include: Joint replacement, detached retina Social history: . No history of smoking or alcohol Family history: Reviewed, noncontributory to presentation Physical examination: VITAL SIGNS: 98.3, 65, 18, 1 22 x 76, 95% on 2 L GENERAL: Reclining in bed, tired, coughing. EYES: Pupils equal. Conjunctiva normal. HEENT: External appearance of nose and ears normal, oral cavity grossly normal. NECK: JVD not raised; masses not palpable. HEART: First and second heart sounds are normal; no edema. LUNGS: Respiratory rate increased, decreased breath sounds prolonged expiration, expiratory crackles. ABDOMEN: Soft, nontender, liver spleen not palpable, no masses palpable. PSYCH: Alert and oriented x3; mood and affect normal MUSCULAR skeletal: Evidence of OA in multiple joints. INVESTIGATIONS, reviewed in the clinical context: July 02: D-dimer 1.6 CRP 22.9 Influenza A and influenza B/PCR: Not detected RSV [PCR]: Detected COVID 19 PCR: Detected Pro-calcitonin 23.5 WBC 5.5 hemoglobin 13.2 platelets 203 sodium 137 potassium 3.7 creatinine 0.66 Troponin I less than 0.012 proBNP 960 Coronavirus [PCR]: Not detected EKG tracing personally reviewed by me-normal sinus rhythm nonspecific ST segment changes Chest x-ray film personally reviewed by me-diffuse bilateral scattered infiltrates Computed tomography scan of the chest with contrast: Negative for PE. Patchy bilateral anesthesia airspace infiltrates. Coronavirus [PCR]: Not detected Assessment and plan: -Acute bilateral secondary pneumonia on underlying COVID-19: Slow to respond IV Zosyn -COVID 19 infection with hypoxia Dexamethasone 6 mg daily. -Acute hypoxic respiratory failure from pneumonia Supplemental oxygen: 2 L -Bronchospasm secondary to above Albuterol inhaler 4 times a day -GERD Pepcid 20 mg twice a day -Primary osteoarthritis multiple joints bilaterally Tylenol when necessary Care was discussed with the patient. Questions answered. Continue with IV Zosyn, dexamethasone, supportive care. Add incentive spirometry. Follow with pulmonary and ID. Advised up in chair as tolerated.
[2021-07-02 22:21] LABS: Appearance,Urine Cloudy (Clear); Bilirubin,Urine Negative (Negative); Blood,Urine Negative (Negative); Calcium Oxalate Crystals,Urine Moderate /hpf; Color,Urine Yellow; Glucose,Urine (UA) Negative (Negative); Hyaline Casts,Urine 4 /lpf (0-2); Ketones,Urine Negative (Negative); Leukocyte Esterase,Urine Negative (Negative); Mucus,Urine Occasional /hpf; Nitrite,Urine Negative (Negative); Protein,Urine Trace (Negative); RBC,Urine 1 /hpf (0-5); Specific Gravity,Urine 1.028 (1.001-1.035); Squamous Epithelial Cell,Urine 2 /hpf (0-4); WBC,Urine 1 /hpf (0-5)
--- NOTE | 2021-07-02 23:50 | P.CONS ---
History of Present Illness - Reason for Consult Consult date: 07/02/21 pneumonia Requesting physician: Cuong Mcdermott - Chief Complaint weakness and shortness of breath x few days - History of Present Illness History of present illness : Patient is 65-year-old female who started getting sick around June 07, 2021 patient did have generalized weakness URI symptoms and a fever and was diagnosed with a COVID-19 on June 10, 2021 patient has received a monoclonal antibodies however did not have any improvement and subsequently was reevaluated in the ER and has been treated with the steroids and the patient mention she felt better afterwards and was doing okay until this Monday. Apparently the patient did made dinner for her children and have to do all the dishes afterwards, patient afterwards felt weak and has to sit down patient thought she overexerted herself over the next few days patient having increasing weakness lethargy shortness of breath on exertion she also having a cough which is moderate intensity has been bringing up some purulent sputum no hemoptysis no pleuritic chest pain with the symptom the aileen anglin was evaluated by the ER physician on arrival to the ER 2 days ago the patient did have low-grade fever of 99.1 F patient was hypoxic with O2 sats of 89% on room air currently 95% on 2 L nasal cannula patient did have a normal white count D-dimer was mildly elevated creatinine was normal liver enzymes are normal procalcitonin 23.50 urine has been negative martinez rapid testing was negative however PCR came back positive patient did have blood and sputum cultures obtained which are currently pending patient did have a chest x-ray patchy bilateral pneumonia slightly worse than last exam patient did have a CT angiogram of the chest that was negative for PE shows extensive bilateral pulmonary pneumonia patient is currently being treated with the [facility] infectious disease was consulted for further management Review of system: CONSTITUTIONAL: Positive for weakness along with the fever. EYES: No complaint. ENT: No complaint. RESPIRATORY: As per history of present illness. CARDIOVASCULAR: No complaint. GENITOURINARY: No complaint. GASTROINTESTINAL: As per history of present illness. MUSCULOSKELETAL: No complaint. INTEGUMENTARY: No complaint. PSYCHOLOGIC: No complaint. ENDOCRINE: No complaint. NEUROLOGIC: No complaint. Past medical history : Reviewed, documented below Past surgical history : Reviewed, documented below Social history: Reviewed, documented below Medications: Reviewed, as documented below EXAMINATION: Vital sigans= Reviewed and documented below GENERAL DESCRIPTION: Middle-aged female lying in bed, no distress. No tachypnea or accessory muscle of respiration use. HEENT: Shows Pallor , no scleral icterus. Oral mucous membrane is dry. NECK: Trachea central, no thyromegaly. LUNGS: Unlabored breathing. Coarse breath sounds bilaterally. No wheeze or c rackle. HEART: S1, S2, regular rate and rhythm. ABDOMEN: Soft, no tenderness , guarding or rigidity EXTREMITIES: No edema of feet. SKIN: No rash, no masses palpable. NEUROLOGICAL: The patient is awake, alert, oriented x3, mood and affect normal. LABS AND RADIOLOGY: Reviewed results see below Assessment : Patient presented to hospital with increasing shortness of breath and weakness in this patient also have a cough productive of purulent sputum patient did have significant elevated procalcitonin likely representing secondary bacterial pneumonia in this patient who started getting sick with a COVID-19 more than 3 weeks ago Plan: 1-patient to continue with the Zosyn 3.375 g every 8 hours while waiting for the sputum culture to finalize 2-gentle IV fluid We will follow on clinical condition and cultures to further adjust medication if needed Thank you for this consultation we will follow the patient along with you Past Medical History Past Medical History: No Reported History History of Any Multi-Drug Resistant Organisms: None Reported Past Surgical History: Section, Joint Replacement Additional Past Surgical History / Comment(s): L hip replacement, dtached rtina Past Anesthesia/Blood Transfusion Reactions: No Reported Reaction Past Psychological History: No Psychological Hx Reported Smoking Status: Never smoker Past Alcohol Use History: None Reported Past Drug Use History: None Reported Medications and Allergies Home Medications Medication Instructions Recorded Confirmed Type No Known Home Medications 06/30/21 06/30/21 History Allergies Allergy/AdvReac Type Severity Reaction Status Date / Time No Known Allergies Allergy Verified 06/30/21 21:10 Physical Exam Vitals: Vital Signs Temp Pulse Resp BP Pulse Ox 07/02/21 14:19 98 F 58 L 17 131/76 96 07/02/21 09:57 98.3 F 65 18 122/76 95 07/02/21 06:00 99.1 F 65 18 116/74 94 L 07/02/21 02:00 98.7 F 61 17 110/68 94 L 07/01/21 20:00 98.3 F 75 17 97/57 94 L 07/01/21 17:37 99.2 F 79 18 114/63 96 Intake and Output 07/02/21 07/02/21 07/02/21 06:59 14:59 22:59 Intake Total 100 Balance 100 Intake: Oral 100 Other: Voiding Method Toilet # Voids 2 Results CBC & Chem 7: 06/30/21 19:28 06/30/21 19:28 Labs: Abnormal Lab Results - Last 24 Hours (Table) 06/30/21 07/02/21 07/02/21 Range/Units 19:28 05:38 05:58 D-Dimer 1.69 H (<0.60) mg/L FEU C-Reactive Protein 22.9 H (<1.0) mg/dL Procalcitonin 23.50 H (0.02-0.09) ng/mL Microbiology - Last 24 Hours (Table) 06/30/21 23:05 Blood Culture - Preliminary Blood No Growth after 24 hours 06/30/21 22:50 Blood Culture - Preliminary Blood No Growth after 24 hours 07/01/21 10:21 Sputum Culture - Preliminary Sputum
[2021-07-02] MEDS ORDERED: PIPERACILLIN-TAZOBACTAM 3.375 GM VIAL ONE (23:59)
[2021-07-02] MEDS ORDERED: SODIUM CHLORIDE 0.9% 1,000 ML BAG ONE (23:59)
[2021-07-02] MEDS ORDERED: SODIUM CHLORIDE 0.9% 100 ML BAG ONE (23:59)
[2021-07-02] MEDS ORDERED: guaiFENesin 600 MG TABLET.ER PO ONE (23:59)
[2021-07-03] MEDS ORDERED: PIPERACILLIN-TAZOBACTAM 3.375 GM in SODIUM CHLORIDE 0.9% 100 ML IVPB SCH (06:00)
[2021-07-03] MEDS: guaiFENesin 600 MG TABLET.ER PO SCH ×4 (07:19→18:02)
[2021-07-03] MEDS: SODIUM CHLORIDE 0.9% 1,000 ML IV SCH (07:19)
[2021-07-03] MEDS: PIPERACILLIN-TAZOBACTAM 3.375 GM in SODIUM CHLORIDE 0.9% 100 ML IVPB SCH (07:20)
[2021-07-03 07:52] LABS: Basophils % (A) 0 %; Eosinophils % (A) 0 %; HCT 35.9 % (34.0-46.0); HGB 11.4 gm/dL (11.4-16.0); Lymphocytes # (A) 1.6 k/uL (1.0-4.8); Lymphocytes % (A) 20 %; MCH 31.7 pg (25.0-35.0); MCHC 31.8 g/dL (31.0-37.0); MCV 99.7 fL (80.0-100.0); Mean Platelet Volume 9.8; Monocytes # (A) 0.4 k/uL (0-1.0); Monocytes % (A) 5 %; Neutrophils % (A) 74 %; Platelet Count 170 k/uL (150-450); RDW 13.7 % (11.5-15.5); WBC 8.2 k/uL (3.8-10.6)
[2021-07-03] MEDS: ZINC SULFATE 220 MG CAP PO SCH (08:10)
[2021-07-03] MEDS: dexAMETHasone 2 MG TAB PO SCH (08:10)
[2021-07-03] MEDS: ASCORBIC ACID 500 MG TAB PO SCH (08:10)
[2021-07-03] MEDS: CHOLECALCIFEROL 25 MCG (1000 IU) TABLET PO SCH (08:10)
[2021-07-03] MEDS: ENOXAPARIN 40 MG/0.4 ML SYRINGE SQ SCH (08:11)
[2021-07-03] MEDS: ALBUTEROL HFA INHALER INHALATION PRN ×2 (08:56→18:12)
--- NOTE | 2021-07-03 14:28 | P.PN ---
Subjective Progress Note Date: 07/03/21 The patient is seen today 07/03/2021 in follow-up on the regular medical floor. She is currently sitting up in a chair at the bedside. Awake and alert in no acute distress. Breathing quite a bit better today compared to yesterday. She is maintaining O2 saturations in the low 90s on 2 L. She was evaluated for possible home oxygen. She did desaturate to 86% on room air with activity. Blood culture reveals no growth. Sputum culture revealed no growth. White count 8.2. Hemoglobin 11.4. D-dimer 1.56.She is continued on Decadron, Lovenox, vitamin supplements. Objective - Vital Signs Vital signs: Vital Signs Temp 98.1 F 07/03/21 09:28 Pulse 55 L 07/03/21 09:28 Resp 17 07/03/21 09:28 BP 144/81 07/03/21 09:28 Pulse Ox 90 L 07/03/21 11:15 Intake & Output 07/02/21 07/03/21 07/03/21 18:59 06:59 18:59 Other: Voiding Method Toilet Toilet # Voids 2 - Exam GENERAL EXAM: Alert, very pleasant, 65-year-old white female, on 2 L of oxygen with a pulse ox of 95%, sitting up in the recliner, no acute distress HEAD: Normocephalic/atraumatic. EYES: Normal reaction of pupils, equal size. Conjunctiva pink, sclera white. NOSE: Clear with pink turbinates. THROAT: No erythema or exudates. NECK: No masses, no JVD, no thyroid enlargement, no adenopathy. CHEST: No chest wall deformity. Symmetrical expansion. LUNGS: Equal air entry with bilateral scattered rhonchi CVS: Regular rate and rhythm, normal S1 and S2, no gallops, no murmurs, no rubs ABDOMEN: Soft, nontender. No hepatosplenomegaly, normal bowel sounds, no guarding or rigidity. EXTREMITIES: No clubbing, no edema, no cyanosis, 2+ pulses and upper and lower extremities. MUSCULOSKELETAL: Muscle strength and tone normal. SPINE: No scoliosis or deformity SKIN: No rashes CENTRAL NERVOUS SYSTEM: No focal deficits, tone is normal in all 4 extremities. PSYCHIATRIC: Alert and oriented -3. Appropriate affect. Intact judgment and insight. - Labs CBC & Chem 7: 07/03/21 06:49 06/30/21 19:28 Labs: Abnormal Lab Results - Last 24 Hours (Table) 07/02/21 07/03/21 07/03/21 Range/Units 16:00 06:49 06:49 RBC 3.60 L (3.80-5.40) m/uL D-Dimer 1.56 H (<0.60) mg/L FEU Urine Appearance Cloudy H (Clear) Urine Protein Trace H (Negative) Calcium Oxalate Crystal Moderate H (None) /hpf Hyaline Casts 4 H (0-2) /lpf Urine Mucus Occasional H (None) /hpf Microbiology - Last 24 Hours (Table) 07/01/21 10:21 Gram Stain - Final Sputum Sputum Culture - Final 06/30/21 23:05 Blood Culture - Preliminary Blood No Growth after 48 hours 06/30/21 22:50 Blood Culture - Preliminary Blood No Growth after 48 hours Assessment and Plan Assessment: 1 Acute hypoxic respiratory failure, multifactorial, related to recent history of COVID-19 infection status post monoclonal antibody infusion, RSV. Sputum cultures revealed no growth 2 Elevated d-dimer with no CTA evidence of pulmonary embolism, is currently improving, patient is currently on prophylactic dose Lovenox 40 mg daily Plan: The patient was seen and evaluated by Dr. Bailey Cleared for discharge from the pulmonary standpoint May require home oxygen I, the cosigning physician, performed a history & physical examination of the patient. Lungs sounds bilateral scattered rhonchi. Maintaining good O2 saturations in the 90s on 2 L/m per nasal cannular. I discussed the assessment and plan of care with my nurse practitioner, Coretta Yeager. I attest to the above note as dictated by her.
--- NOTE | 2021-07-03 15:35 | P.PN ---
Progress Note - Text Progress Note Date: 07/03/21 Chief Complaint: Short of breath cough This is a pleasant 65-year-old patient of follows with Dr. Nunez. Normally rather good health. For 5 days patient started having increasing chest congestion. Cough with green sputum. No obvious fever and chills. Decreased appetite. Also had a headache for about 3 days. Which is actually better this morning. No change in bowel movements. No obvious myalgia. Became hoarse. Last 2 days. Some wheezing. Tested negative for COVID. Patient otherwise normally in good health. Does not take any medications. Patient's initial rapid COVID-19 testing was negative. Repeat testing came back positive both for RSV PCR and COVID-19. 07/02/2021: Reclining in bed. Congested cough. Heavy sputum production. Short of breath. Intake- 50% of her breakfast. Tired. On dexamethasone, IV Zosyn. 07/03/2021: Sitting up in bed. Congestion a bit better. 2 L of nasal cannula. Eating about 50%. Review of systems: Was done for constitutional, cardiovascular, GI, pulmonary. relevant finding as above Active Medications Albuterol Sulfate (Albuterol Hfa Inhaler) 2 puff INHALATION RT-QID PRN PRN Reason: Shortness Of Breath Or Wheezing Last Admin: 07/03/21 08:56 Dose: 2 puff Documented by: Ascorbic Acid (Ascorbic Acid 500 Mg Tab) 1,000 mg PO DAILY [facility] Last Admin: 07/03/21 08:10 Dose: 1,000 mg Documented by: Cholecalciferol (Cholecalciferol 25 Mcg (1000 Iu) Tablet) 125 mcg PO DAILY [facility] Last Admin: 07/03/21 08:10 Dose: 125 mcg Documented by: Dexamethasone (Dexamethasone 2 Mg Tab) 6 mg PO DAILY [facility] Last Admin: 07/03/21 08:10 Dose: 6 mg Documented by: Enoxaparin Sodium (Enoxaparin 40 Mg/0.4 Ml Syringe) 40 mg SQ DAILY [facility] Last Admin: 07/03/21 08:11 Dose: 40 mg Documented by: Guaifenesin (Guaifenesin 600 Mg Tablet.Er) 600 mg PO QID [facility] Last Admin: 07/03/21 12:06 Dose: 600 mg Documented by: Sodium Chloride (Saline 0.9%) 1,000 mls @ 20 mls/hr IV .Q24H [facility] Last Admin: 07/03/21 07:19 Dose: Not Given Documented by: Miscellaneous Information (Pneumonia Protocol Utilized 1 Each [facility]) 1 each PO ONCE PRN PRN Reason: Per Protocol Zinc Sulfate (Zinc Sulfate 220 Mg Cap) 220 mg PO DAILY [facility] Last Admin: 07/03/21 08:10 Dose: 220 mg Documented by: Past medical history to include: Joint replacement, detached retina Social history: . No history of smoking or alcohol Family history: Reviewed, noncontributory to presentation Physical examination: VITAL SIGNS: 98.1, 55, 17, 144, 93% on 2 L GENERAL: Reclining in bed, not in distress NECK: JVD not raised; masses not palpable. HEART: First and second heart sounds are normal; no edema. LUNGS: Respiratory rate increased, . PSYCH: Alert and oriented x3; mood and affect normal MUSCULAR skeletal: Evidence of OA in multiple joints. INVESTIGATIONS, reviewed in the clinical context: July 03: WBC 8.2 hemoglobin 11.4 d-dimer 1.56 procalcitonin 4.56 July 02: D-dimer 1.6 CRP 22.9 Influenza A and influenza B/PCR: Not detected RSV [PCR]: Detected COVID 19 PCR: Detected Pro-calcitonin 23.5 WBC 5.5 hemoglobin 13.2 platelets 203 sodium 137 potassium 3.7 creatinine 0.66 Troponin I less than 0.012 proBNP 960 Coronavirus [PCR]: Not detected EKG tracing personally reviewed by me-normal sinus rhythm nonspecific ST segment changes Chest x-ray film personally reviewed by me-diffuse bilateral scattered infiltrates Computed tomography scan of the chest with contrast: Negative for PE. Patchy bilateral anesthesia airspace infiltrates. Coronavirus [PCR]: Not detected Assessment and plan: -Acute bilateral secondary pneumonia on underlying COVID-19: IV Zosyn -COVID 19 infection with hypoxia Dexamethasone 6 mg daily. -Acute hypoxic respiratory failure from pneumonia Supplemental oxygen: 2 L -Bronchospasm secondary to above Albuterol inhaler 4 times a day -GERD Pepcid 20 mg twice a day -Primary osteoarthritis multiple joints bilaterally Tylenol when necessary Continue with IV Zosyn, dexamethasone, supportive care. Increase activity as tolerated..
--- NOTE | 2021-07-03 18:03 | PN ---
PROGRESS NOTE DATE OF SERVICE: 07/03/2021 REASON FOR FOLLOWUP: Pneumonia. INTERVAL COURSE: History the patient is afebrile. The patient is feeling better today. She is breathing comfortably. The patient's cough has decreased in intensity, still bringing up some sputum. No vomiting. No abdominal pain or diarrhea. PHYSICAL EXAMINATION: Blood pressure 124/75 with a pulse of 56. Temperature 98.3. She is 94% on 2 L nasal cannula. General description is a middle-aged female up in the chair in no distress. Respiratory system: Unlabored breathing, decreased intensity of breath sounds. No wheeze. Heart S1, S2. Regular rate and rhythm. Abdomen soft, no tenderness. LABS: Hemoglobin 11.4, hematocrit 8.2, procalcitonin down to 4.56. DIAGNOSTIC IMPRESSION AND PLAN: Patient with acute respiratory failure which is multifactorial in this patient who did have a component of bacterial pneumonia. Patient sputum has been negative for resistant pathogen. Antibiotic adjusted to Rocephin, finish therapy with oral Ceftin and close outpatient followup. MMODL / IJN: [id number] /
[2021-07-03 19:19] LABS: ALT 14 U/L (4-34); AST 18 U/L (14-36); African American GFR (CKD) >90 (>60 ml/min/1.73 sqM); Albumin 2.8 g/dL (3.5-5.0); Albumin/Globulin Ratio 0.9; Alkaline Phosphatase 130 U/L (38-126); Blood Urea Nitrogen 13 mg/dL (7-17); Calcium 8.8 mg/dL (8.4-10.2); Carbon Dioxide 24 mmol/L (22-30); Chloride 107 mmol/L (98-107); Globulin 3.1 g/dL; Glucose 108 mg/dL (74-99); LDH 575 U/L (313-618); Non-African American GFR(CKD) >90 (>60 ml/min/1.73 sqM); Potassium 4.1 mmol/L (3.5-5.1); Total Bilirubin 0.5 mg/dL (0.2-1.3); Total Protein 5.9 g/dL (6.3-8.2)
[2021-07-03 19:42] LABS: C Reactive Protein 12.6 mg/dL (<1.0)
[2021-07-03 19:53] LABS: Anion Gap 8 mmol/L; Sodium 139 mmol/L (137-145)
[2021-07-03] MEDS ORDERED: guaiFENesin 600 MG TABLET.ER PO ONE (22:00)
[2021-07-04] MEDS: SODIUM CHLORIDE 0.9% 1,000 ML IV SCH (05:28)
[2021-07-04] MEDS: guaiFENesin 600 MG TABLET.ER PO SCH ×3 (05:28→13:14)
[2021-07-04] MEDS: dexAMETHasone 2 MG TAB PO SCH (09:20)
[2021-07-04] MEDS: ZINC SULFATE 220 MG CAP PO SCH (09:20)
[2021-07-04] MEDS: CHOLECALCIFEROL 25 MCG (1000 IU) TABLET PO SCH (09:20)
[2021-07-04] MEDS: ENOXAPARIN 40 MG/0.4 ML SYRINGE SQ SCH (09:20)
[2021-07-04] MEDS: ASCORBIC ACID 500 MG TAB PO SCH (09:20)
[2021-07-04 10:19] VITALS: RESP 17
--- NOTE | 2021-07-04 13:12 | XR ---
EXAMINATION TYPE: XR chest 1V portable DATE OF EXAM: 07/04/2021 COMPARISON: 07/01/2020 HISTORY: Cough TECHNIQUE: Single frontal view of the chest is obtained. FINDINGS: Bilateral areas of infiltrate are seen compatible with multifocal pneumonia. Follow-up to resolution to exclude neoplasm. Heart size normal. No pleural effusion or pneumothorax. Interstitial pattern suggest chronic interstitial lung disease. Suspect underlying COPD. IMPRESSION: Stable multifocal infiltrates.
--- NOTE | 2021-07-04 14:34 | P.DS ---
Providers Date of admission: 06/30/21 22:10 Expected date of discharge: 07/04/21 Attending physician: Cuong Mcdermott Consults: 07/01/21 10:19 Consult Physician Routine Consulting Provider: Timothy Bailey Consult Reason/Comments: pneumonia Do you want consulting provider notified?: Yes 07/02/21 16:07 Consult Physician Routine Consulting Provider: Kelly Han Consult Reason/Comments: COVID 19 positive Do you want consulting provider notified?: Yes Primary care physician: Jeannette Nunez [facility] Course: Chief Complaint: Short of breath cough This is a pleasant 65-year-old patient of follows with Dr. Nunez. Normally rather good health. For 5 days patient started having increasing chest congestion. Cough with green sputum. No obvious fever and chills. Decreased appetite. Also had a headache for about 3 days. Which is actually better this morning. No change in bowel movements. No obvious myalgia. Became hoarse. Last 2 days. Some wheezing. Tested negative for COVID. Patient otherwise normally in good health. Does not take any medications. Patient's initial rapid COVID-19 testing was negative. Repeat testing came back positive both for RSV PCR and COVID-19. On IV dexamethasone. For secondary bacterial infection place on IV Zosyn. Patient did improve. July 04: Pulse ox good on room air and at rest but dropped to 86% of that 80. Home with 2 L of oxygen. Communicated with Dr. Mayen from ID. Christopher for DC on Ceftin. We have by pulmonary. Questions were answered to the patient. Including isolation and not to return to work until cleared by pulmonary as an outpatient. Eliquis 2.5 by mouth twice a day added for DVT prophylaxis. Discussion and discharge planning more than 35 minutes Consultation: Dr. Han from ID Dr. Bailey from pulmonary Past medical history to include: Joint replacement, detached retina Social history: . No history of smoking or alcohol Family history: Reviewed, noncontributory to presentation Physical examination: VITAL SIGNS: 98.2, 45, 17, 120/75, 86% with activity GENERAL: Sitting up, comfortable PSYCH: Alert and oriented x3; mood and affect normal Francisco of the exam per pulmonary and nursing INVESTIGATIONS, reviewed in the clinical context: July 04: D-dimer 1.56 CRP 4.56 Influenza A and influenza B/PCR: Not detected RSV [PCR]: Detected COVID 19 PCR: Detected Pro-calcitonin 23.5 WBC 5.5 hemoglobin 13.2 platelets 203 sodium 137 potassium 3.7 creatinine 0.66 Troponin I less than 0.012 proBNP 960 Coronavirus [PCR]: Not detected EKG tracing personally reviewed by me-normal sinus rhythm nonspecific ST segment changes Chest x-ray film personally reviewed by me-diffuse bilateral scattered infiltrates Computed tomography scan of the chest with contrast: Negative for PE. Patchy bilateral anesthesia airspace infiltrates. Coronavirus [PCR]: Not detected Assessment and plan: -Acute bilateral secondary pneumonia on underlying COVID-19: IV Zosyn. Ceftin 500 mg twice a day for 5 days -COVID 19 infection with hypoxia Dexamethasone 6 mg daily. Home with steroid taper -Acute hypoxic respiratory failure from pneumonia Supplemental oxygen: 2 L -Bronchospasm secondary to above Albuterol inhaler 4 times a day -GERD Pepcid 20 mg twice a day -Primary osteoarthritis multiple joints bilaterally Tylenol when necessary Disposition: Home Plan - Discharge Summary Discharge Rx Participant: No New Discharge Prescriptions: New Cefuroxime Axetil [Ceftin] 500 mg PO BID #10 tab predniSONE 10 mg PO DAILY #30 tab Albuterol Inhaler [Ventolin Hfa Inhaler] 2 puff INHALATION RT-QID PRN #1 gm PRN Reason: Shortness Of Breath Or Wheezing Zinc Sulfate [Orazinc] 220 mg PO DAILY #30 cap Ascorbic Acid [Vitamin C] 1,000 mg PO DAILY #60 tab Cholecalciferol [Vitamin D3 (25 Mcg = 1000 Iu)] 125 mcg PO DAILY #100 tablet Apixaban [Eliquis] 2.5 mg PO BID #60 tab Discharge Medication List Albuterol Inhaler [Ventolin Hfa Inhaler] 2 puff INHALATION RT-QID PRN #1 gm 07/04/21 [Rx] Apixaban [Eliquis] 2.5 mg PO BID #60 tab 07/04/21 [Rx] Ascorbic Acid [Vitamin C] 1,000 mg PO DAILY #60 tab 07/04/21 [Rx] Cefuroxime Axetil [Ceftin] 500 mg PO BID #10 tab 07/04/21 [Rx] Cholecalciferol [Vitamin D3 (25 Mcg = 1000 Iu)] 125 mcg PO DAILY #100 tablet 07/04/21 [Rx] Zinc Sulfate [Orazinc] 220 mg PO DAILY #30 cap 07/04/21 [Rx] predniSONE 10 mg PO DAILY #30 tab 07/04/21 [Rx] Follow up Appointment(s)/Referral(s): Timothy Baiely DO [Doctor of Osteopathic Medicine] - 1 Week (office closed at time of discharge. Please call Monday to schedule appointment) Jeannette Nunez MD [Primary Care Provider] - 1-2 days (office closed at time of discharge. Please call Monday to schedule appointment ) Activity/Diet/Wound Care/Special Instructions: covid isolation
--- NOTE | 2021-07-04 15:04 | P.PN ---
Subjective Progress Note Date: 07/04/21 Principal diagnosis: Coronavirus associated pneumonia. The patient is seen today 07/03/2021 in follow-up on the regular medical floor. She is currently sitting up in a chair at the bedside. Awake and alert in no acute distress. Breathing quite a bit better today compared to yesterday. She is maintaining O2 saturations in the low 90s on 2 L. She was evaluated for possible home oxygen. She did desaturate to 86% on room air with activity. Blood culture reveals no growth. Sputum culture revealed no growth. White count 8.2. Hemoglobin 11.4. D-dimer 1.56.She is continued on Decadron, Lovenox, vitamin supplements. Progress note dated 07/04/2021. Currently, the patient's doing much better. The patient feels much less short of breath. She likely will need to be discharged home though on oxygen therapy. Today, her saturations are in the mid 80s on room air just sitting. They probably will drop even lower on exertion. Labs from yesterday are reviewed. They're mostly normal including a white count, hemoglobin, hematocrit, platelet count, electrolyte profile, etc. She remains on vitamin supplements, Lovenox, and Decadron. Objective - Vital Signs Vital signs: Vital Signs Temp 97.9 F 07/04/21 13:24 Pulse 53 L 07/04/21 13:24 Resp 17 07/04/21 13:24 BP 149/82 07/04/21 13:24 Pulse Ox 97 07/04/21 13:24 Intake & Output 07/03/21 07/04/21 07/04/21 18:59 06:59 18:59 Intake Total 600 Balance 600 Intake: Oral 600 Other: Voiding Method Toilet Toilet # Voids 2 - Exam No acute distress, oriented 3. Room air saturations are in the mid 80s. This is while sitting. HEENT examination is grossly unremarkable. Neck supple. Full range of motion. No adenopathy thyromegaly or neck vein distention. Cardiovascular examination reveals regular rhythm rate. S1-S2 normal. No S3 or S4. No discernible murmur noted. Heart rate is 63 bpm. Lungs reveal scattered bilateral rhonchi. No wheezes or crackles. Breath sounds are equal bilaterally. Abdomen soft bowel sounds are heard. No masses or tenderness. Extremities are intact. No cyanosis clubbing or edema. Skin is without rash or lesion. Neurologic examination is brief but nonfocal. - Labs CBC & Chem 7: 07/03/21 06:49 07/03/21 06:49 Labs: Abnormal Lab Results - Last 24 Hours (Table) 07/02/21 07/03/21 Range/Units 05:38 06:49 Glucose 108 H (74-99) mg/dL Alkaline Phosphatase 130 H (38-126) U/L C-Reactive Protein 12.6 H (<1.0) mg/dL Total Protein 5.9 L (6.3-8.2) g/dL Albumin 2.8 L (3.5-5.0) g/dL Procalcitonin 10.30 H (0.02-0.09) ng/mL Microbiology - Last 24 Hours (Table) 06/30/21 23:05 Blood Culture - Preliminary Blood No Growth after 72 hours 06/30/21 22:50 Blood Culture - Preliminary Blood No Growth after 72 hours Assessment and Plan Assessment: Acute hypoxemic respiratory failure secondary to coronavirus pneumonia. Patient also tested positive for respiratory syncytial virus. Previous administration of monoclonal antibody, on June 04. No significant past medical history. Plan: Plan dated 07/01/2021. The patient should get Decadron 6 mg daily. In addition, the patient should get vitamin C, vitamin D3, and zinc. She does not need any antibiotics. They will be discontinued. In addition, the patient should get Lovenox 40 mg subcu per day. She is not a candidate for REM. She is also not a candidate for Baricitinib. We will continue to follow make recommendations where appropriate. Prognosis is guarded. I did explain to the patient that her chest x-ray and CAT scan were reviewed. There was no evidence of blood clot. Plan dated 07/04/2021. From the pulmonary perspective, the patient could be considered for discharge. This will depend course on the primary hospitalist service. There may be other reasons that she might need to stay. Currently, she is on vitamin C, vitamin D3, and zinc. She was thought not to be candidate for REM. She was also not a candidate for the monoclonal antibody consulted to look at 6. She did receive both Decadron and Lovenox. The CAT scan was negative for pulmonary embolism. Additional recommendations and suggestions are forthcoming. We will continue to follow up should the patient not be discharged. Time with Patient: Less than 30
--- NOTE | 2021-07-04 17:36 | PN ---
PROGRESS NOTE DATE OF SERVICE: 07/04/2021 REASON FOR FOLLOWUP: Pneumonia. INTERVAL HISTORY: The patient is afebrile. The patient is breathing comfortably. Denies having any chest pain. Cough has decreased in intensity. No vomiting. No abdominal pain or diarrhea. PHYSICAL EXAMINATION: Blood pressure is 149/82 with a pulse of 53, temperature 97.9. She is 97% on 1 L nasal cannula. General description is a middle-aged female up in the bed in no distress. RESPIRATORY SYSTEM: Unlabored breathing. Coarse crackles at the bases. No wheeze. HEART: S1, S2. Regular rate and rhythm. ABDOMEN: Soft. No tenderness. LABS: Hemoglobin is 11.8, white count 8.2, creatinine 0.71. DIAGNOSTIC IMPRESSION AND PLAN: Patient with pneumonia, community-acquired. Overall improvement on Rocephin. Patient to finish therapy with oral Ceftin. Discussed with the admitting physician. Continue supportive care. MMODL / IJN: [id number] /
[2021-07-04 18:43] VITALS: BP 152/83; PULSE 47; TEMP 98.4
== END 2021-07-04 20:30 | disposition home or self-care (01) | DRG 177 ==
LOC: EC 17:51 → 4SSUR 22:10
PROVIDERS: ADMIT Hospitalist; ATTEND Hospitalist
DX: U07.1 COVID-19 (principal); J12.82 Pneumonia due to coronavirus disease 2019; J96.01 Acute respiratory failure with hypoxia; B97.4 Respiratory syncytial virus as the cause of diseases classified elsewhere; K21.9 Gastro-esophageal reflux disease without esophagitis; J98.01 Acute bronchospasm; M15.9 Polyosteoarthritis, unspecified; Z96.642 Presence of left artificial hip joint
CPT/HCPCS: 36415; 71045; 71046; 71275; 80053; 81001; 83605; 83615; 83735; 83880; 84145; 84484; 85025; 85379; 85610; 85730; 86140; 87040; 87070; 87205; 87635; 87636; 93005; 94640; 96361; 96374; 99285